=== PATIENT | female | born 1935 | race Caucasian/White ===

== ENCOUNTER → 2017-10-04 | Outpatient (CLI) | payer MEDICARE ==
--- NOTE | 2017-10-05 09:05 | RADIOLOGY REPORT PS360 ---
LUMBAR SPINE-2 TO 3 VIEWS COMPARISON: Lumbar spine 04/19/2017 HISTORY: Low back pain TECHNIQUE: AP and lateral views FINDINGS: The patient upright in fusion of L4-L5 is again noted with interpedicular screws in the L4 and L4-5 vertebral bodies. There is a spacer in the L4-5 disc space. There is been previous laminectomy of the L4 and L5 levels. The remaining lumbar vertebrae appear intact. SI joints are normal. Again noted is the large calcination right upper quadrant probably calcified gallstone. IMPRESSION: Stable postoperative fusion L4 and L5 as noted
== END ==
LOC: RAD 14:43
DX: Z98.1 Arthrodesis status (principal)